=== PATIENT | female | born 1945 | race Caucasian/White ===

== ENCOUNTER 2023-11-20 08:53 | Outpatient (RCR) | payer MEDICARE, SELFPAY | END 2023-11-20 23:59 | disposition home or self-care (01) | LOC: RPT 08:53 | PROVIDERS: ATTENDING PHYSICIAN Family Medicine | DX: Z47.89 Encounter for other orthopedic aftercare (principal); Z87.81 Personal history of (healed) traumatic fracture; Z86.711 Personal history of pulmonary embolism; R53.1 Weakness | CPT/HCPCS: 97110; 97112 ==

== ENCOUNTER 2023-12-25 09:04 | Outpatient (RCR) | payer MEDICARE, SELFPAY | END 2023-12-25 23:59 | disposition home or self-care (01) | LOC: RPT 09:04 | PROVIDERS: ATTENDING PHYSICIAN Family Medicine | DX: Z47.89 Encounter for other orthopedic aftercare (principal); R53.1 Weakness; Z73.6 Limitation of activities due to disability; R26.2 Difficulty in walking, not elsewhere classified; M25.552 Pain in left hip; R26.89 Other abnormalities of gait and mobility; Z86.711 Personal history of pulmonary embolism; Z87.81 Personal history of (healed) traumatic fracture | CPT/HCPCS: 97110; 97112 ==

== ENCOUNTER 2024-01-27 08:56 | Outpatient (RCR) | payer MEDICARE, SELFPAY | END 2024-01-27 23:59 | disposition home or self-care (01) | LOC: RPT 08:56 | PROVIDERS: ATTENDING PHYSICIAN Family Medicine | DX: R53.1 Weakness (principal); Z73.6 Limitation of activities due to disability; M62.81 Muscle weakness (generalized); R26.2 Difficulty in walking, not elsewhere classified; M25.552 Pain in left hip; R26.89 Other abnormalities of gait and mobility; Z86.711 Personal history of pulmonary embolism; Z87.81 Personal history of (healed) traumatic fracture | CPT/HCPCS: 97110; 97112 ==

== ENCOUNTER → 2024-03-24 07:19 | Outpatient (REF) | payer MEDICARE, SELFPAY ==
[2024-03-24 08:18] LABS: % Basophils 0.8 % (0-2); % Eosinophils 8.3 % (0-6); % Immature Granulocytes 0.3 % (0-0.5); % Lymphocytes 41.7 % (20.5-51.1); % Monocytes 7.6 % (1.7-9.3); % Neutrophils 41.3 % (42.2-75.2); Absolute Basophils 0.1 10^3/uL (0-0.2); Absolute Eosinophils 0.6 10^3/uL (0-0.7); Absolute Lymphocytes 3.1 10^3/uL (1.2-3.4); Absolute Monocytes 0.6 10^3/uL (0.1-0.6); Absolute Neutrophils 3.1 10^3/uL (1.4-6.5); Hematocrit 39.7 % (37.0-47.0); Hemoglobin 13.3 g/dL (12.0-16.0); Mean Corp Hgb Conc. 33.5 g/dL (33.0-37.0); Mean Corpuscular Hgb 33.3 pg (27.0-31.0); Mean Corpuscular Volume 99.3 fL (81.0-99.0); Mean Platelet Volume 10.7 fL (7.4-10.4); Nucleated Red Blood Cells % 0 %; Platelet Count 252 10^3/uL (130-400); Red Cell Dist. Width 12.7 % (11.5-14.5); White Blood Cell Count 7.4 10^3/uL (4.8-10.8)
[2024-03-24 08:21] LABS: ALT (SGPT) 17 U/L (0-35); AST (SGOT) 25 U/L (14-36); Albumin 4.2 g/dl (3.5-5.0); Alkaline Phosphatase 46 U/L (38-126); Blood Urea Nitrogen 25 mg/dl (7-17); Carbon Dioxide 27 mmol/L (22-30); Chloride 103 mmol/L (98-107); Glucose 105 mg/dl (70-99); HDL Cholesterol 70 mg/dl; LDL Cholesterol, Calculated 79 mg/dl; Potassium 4.8 mmol/L (3.5-5.1); Sodium 132 mmol/L (135-145); Total Bilirubin 0.4 mg/dl (0.2-1.3); Total Cholesterol 168 mg/dl (50-199); Total Protein 7.4 g/dl (6.3-8.2); Triglyceride 96 mg/dl (10-149); Very Low Density Lipoprotein 19 mg/dl (0-30); eGFR > 60.00
[2024-03-24 08:41] LABS: Microalbumin, Random Urine <0.6 mg/dl (0.6-1.7)
[2024-03-24 09:23] LABS: Glycohemoglobin (HgbA1c) 6.1 % (4.0-5.6)
[2024-03-24 10:48] LABS: Vitamin B12 312 pg/ml (239-931)
== END ==
LOC: REG 07:19
PROVIDERS: ATTENDING PHYSICIAN Family Medicine
DX: E11.65 Type 2 diabetes mellitus with hyperglycemia (principal); E22.2 Syndrome of inappropriate secretion of antidiuretic hormone; D53.9 Nutritional anemia, unspecified; E53.8 Deficiency of other specified B group vitamins
CPT/HCPCS: 36415; 80053; 80061; 82043; 82570; 82607; 83036; 85025

== ENCOUNTER → 2024-10-17 10:47 | Outpatient (REF) | payer MEDICARE, SELFPAY ==
[2024-10-17 12:37] LABS: Sodium 139 mmol/L (135-145)
[2024-10-17 13:39] LABS: Folate 15.2 ng/ml (2.76-20); Vitamin B12 > 1000 pg/ml (239-931)
== END ==
LOC: REG 10:47
PROVIDERS: ATTENDING PHYSICIAN Family Medicine
DX: I87.1 Compression of vein (principal); E53.8 Deficiency of other specified B group vitamins
CPT/HCPCS: 36415; 82607; 82746; 84295

== ENCOUNTER → 2024-11-08 09:08 | Outpatient (REF) | payer MEDICARE, SELFPAY | LOC: HWRAD 09:08 | PROVIDERS: ATTENDING PHYSICIAN Specialist; FAMILY PHYSICIAN Family Medicine | DX: N13.1 Hydronephrosis with ureteral stricture, not elsewhere classified (principal) | CPT/HCPCS: 76775 ==

== ENCOUNTER → 2024-12-26 07:27 | Outpatient (REF) | payer MEDICARE, SELFPAY ==
[2024-12-26 09:38] LABS: Glycohemoglobin (HgbA1c) 6.1 % (4.0-5.6)
[2024-12-26 10:02] LABS: ALT (SGPT) 19 U/L (0-35); AST (SGOT) 25 U/L (14-36); Albumin 4.4 g/dl (3.5-5.0); Alkaline Phosphatase 46 U/L (38-126); Direct Bilirubin 0.1 mg/dl (0.0-0.4); HDL Cholesterol 75 mg/dl; LDL Cholesterol, Calculated 90 mg/dl; Total Bilirubin 0.4 mg/dl (0.2-1.3); Total Cholesterol 180 mg/dl (50-199); Total Protein 7.4 g/dl (6.3-8.2); Triglyceride 79 mg/dl (10-149); Very Low Density Lipoprotein 15 mg/dl (0-30)
[2024-12-26 18:40] LABS: Hepatitis C Antibody Negative (Negative)
== END ==
LOC: REG 07:27
PROVIDERS: ATTENDING PHYSICIAN Family Medicine
DX: Z11.59 Encounter for screening for other viral diseases (principal); E11.65 Type 2 diabetes mellitus with hyperglycemia; M17.11 Unilateral primary osteoarthritis, right knee; M21.41 Flat foot [pes planus] (acquired), right foot; M19.071 Primary osteoarthritis, right ankle and foot
CPT/HCPCS: 36415; 73564; 73630; 80061; 80076; 83036; 86803

== ENCOUNTER → 2024-12-27 07:49 | Outpatient (REF) | payer MEDICARE, SELFPAY | LOC: RAD 07:49 | PROVIDERS: ATTENDING PHYSICIAN Family Medicine | DX: R29.890 Loss of height (principal); N95.1 Menopausal and female climacteric states; N95.9 Unspecified menopausal and perimenopausal disorder | CPT/HCPCS: 77080 ==

== ENCOUNTER 2025-02-28 05:50 | Emergency (ER) | payer MEDICARE, SELFPAY ==
[2025-02-28 05:52] VITALS: BP 154/84
[2025-02-28 06:05] VITALS: BP 154/81
[2025-02-28 06:08] VITALS: BMI 21.0
--- NOTE | 2025-02-28 06:24 | ED.GENMED ---
History of Present Illness
General
Chief Complaint: Cardiac Symptoms
Source: patient
Exam Limitations: none
Time Seen by Provider: 02/28/25 06:08
History of Present Illness
History of Present Illness:
79-year-old female with history of hypertension, nephrectomy and cholecystectomy as well as DVT following knee surgery presents with the onset of fluttering and rapid heart sensation after waking up this morning to go to the bathroom. There is
associated shortness of breath as well. She denies any chest pain. No recent travel or surgery. She is not on anticoagulants currently. She denies orthopnea or leg swelling or calf pain. No fever or cough. No abdominal pain nausea vomiting or
diaphoresis.
Past History
Past History
ED Past Medical History: HTN, NIDDM and Other (Renal cyst, E. coli urinary tract infection, ureteral stent, common bile duct stone)
ED Past Surgical History: Orthopedic (Left hip fracture with pins) and Urological
Social History
Tobacco: Non-smoker
Alcohol: None
Drug: None
Living: with family
Phy Exam
Physical Exam
Physical Exam:
General: Well-appearing female no acute respiratory distress
HEENT: Normocephalic atraumatic
Heart: Regular rate and rhythm no murmurs
Lungs: Clear no wheeze
Abdomen is soft nontender
Extremities: No cyanosis or edema
Course
Orders/Labs/Results
Orders:
Orders
02/28/25 05:55
Electrocardiogram (*1) Urgent
Reason for Study: Bradycardia / Tachycardia
EKG- Treatment ONCE
02/28/25 06:21
Complete Blood Count/With Diff Urgent
Comprehensive Metabolic Panel Urgent
Free T4 Urgent
NT-proBNP Urgent
TSH Reflex To Free T4 Urgent
Comment: ADD ON
Troponin I Urgent
02/28/25 06:23
CR Chest - 2 Views Urgent
Comment:
Reason For Exam: sob
02/28/25 06:24
D-Dimer Urgent
02/28/25 06:34
Add On- LAB Urgent
Tests Added?: tsh reflex to t4
Abnormal Lab Results
02/28/25
06:21
RBC 4.10 L 10^6/uL
(4.20-5.40)
MCH 33.4 H pg
(27.0-31.0)
MPV 10.5 H fL
(7.4-10.4)
Eosinophils % 6.9 H %
(0-6)
BUN 23 H mg/dl
(7-17)
Glucose 122 H mg/dl
(70-99)
TSH (Reflex) 4.83 H uIU/ml
(0.47-4.68)
02/28/25 06:21
02/28/25 06:21
Vital Signs
Initial and Last Documented VS:
Initial Vital Signs
Temp Pulse Resp BP Pulse Ox
97.3 F 86 24 154/84 100
02/28/25 05:52 02/28/25 05:52 02/28/25 05:52 02/28/25 05:52 02/28/25 05:52
Last Documented Vital Signs
Temp Pulse Resp BP Pulse Ox
97.3 F 67 26 145/73 99
02/28/25 05:52 02/28/25 07:00 02/28/25 07:00 02/28/25 07:00 02/28/25 07:00
MDM/Problems Addressed
Differential Diagnosis Includes:
Patient presents with heart racing and shortness of breath. EKG and heart rate on monitor shows normal sinus rhythm. There is no ischemic changes on EKG. She is not hypoxic.
Will start workup with labs including troponin BNP and D-dimer. Chest x-ray pending. Add thyroid study as well
*Critical Care Note
Total Time (30-74mins, 75-104mins- exclusive of procedures): Not Applicable
Update Note
Update Note:
Patient reevaluated. All of her symptoms have resolved. Palpitations and shortness of breath are gone. D-dimer undetectable. Chest x-ray is negative for acute findings. I personally seen and reviewed the x-ray. Troponin and BNP also normal.
Ambulatory pulse ox without any change. Patient came in for palpitations however there is no arrhythmias evident on today's workup. Recommend she follow-up with her family doctor but no indication for admission. Stable for
ED Attending Note
-
Portions of this chart may have been created with voice recognition software.� Occasional wrong word or��sound alike� substitutions may have occurred due to the inherent limitations of voice recognition software.
Discharge Plan
Departure
Patient Disposition: Home (Routine Discharge)
Date of Disposition: 02/28/25
Time of Disposition: 07:50
Patient with high blood pressure during this ER visit?: No
Discharge Problem:
Palpitations
Instructions: Palpitations
Prescriptions:
No Action
aspirin 81 mg Tablet,Delayed Release (Dr/Ec)
81 mg PO DAILY
sodium chloride 1,000 mg tablet,soluble
500 mg PO DAILY
calcium carbonate-vitamin D3 [Calcium 600 + D(3)] 600 mg-10 mcg (400 unit) Tablet
1 tab PO DAILY
Referrals:
Arabella Whitfield DO [Family Provider] -
Activity Restrictions/Additional Instructions:
Stay hydrated. Please return here for worsening symptoms. Follow-up with your doctor for further evaluation
Interventions
Interventions:
*Risk Screen - Suicide Last Done: 02/28/25 05:52
*General Assessment Last Done: 02/28/25 05:59
*Neglect/Abuse Screening Last Done: 02/28/25 05:52
*ED- Fall Risk Assessment Last Done: 02/28/25 05:59
*ED COVID-19 Vaccine History Last Done: 02/28/25 05:59
ED- Pulmonary Assessment Last Done: 02/28/25 05:59
ED- Cardiac Assessment Last Done: 02/28/25 05:59
Discharge Date and Time
Print Language: NORWEGI[place]
[2025-02-28 06:37] LABS: % Basophils 0.5 % (0-2); % Eosinophils 6.9 % (0-6); % Immature Granulocytes 0.2 % (0-0.5); % Lymphocytes 23.6 % (20.5-51.1); % Monocytes 6.6 % (1.7-9.3); % Neutrophils 62.2 % (42.2-75.2); Absolute Eosinophils 0.6 10^3/uL (0-0.7); Absolute Lymphocytes 2.1 10^3/uL (1.2-3.4); Absolute Monocytes 0.6 10^3/uL (0.1-0.6); Absolute Neutrophils 5.5 10^3/uL (1.4-6.5); Hematocrit 39.5 % (37.0-47.0); Hemoglobin 13.7 g/dL (12.0-16.0); Mean Corp Hgb Conc. 34.7 g/dL (33.0-37.0); Mean Corpuscular Hgb 33.4 pg (27.0-31.0); Mean Corpuscular Volume 96.3 fL (81.0-99.0); Mean Platelet Volume 10.5 fL (7.4-10.4); Nucleated Red Blood Cells % 0 %; Platelet Count 238 10^3/uL (130-400); White Blood Cell Count 8.9 10^3/uL (4.8-10.8)
[2025-02-28 06:52] VITALS: BP 131/74
[2025-02-28 06:54] LABS: ALT (SGPT) 18 U/L (0-35); AST (SGOT) 22 U/L (14-36); Albumin 4.4 g/dl (3.5-5.0); Alkaline Phosphatase 50 U/L (38-126); Blood Urea Nitrogen 23 mg/dl (7-17); Calcium 10.1 mg/dl (8.4-10.2); Carbon Dioxide 23 mmol/L (22-30); Chloride 105 mmol/L (98-107); Estimated Creatinine Clearance 48 ml/min; Glucose 122 mg/dl (70-99); Potassium 4.4 mmol/L (3.5-5.1); Sodium 138 mmol/L (135-145); Total Bilirubin 0.7 mg/dl (0.2-1.3); eGFR > 60.00
[2025-02-28 07:00] VITALS: BP 145/73
[2025-02-28 07:01] LABS: NT-proBNP 118 pg/ml; Troponin I < 0.012 ng/ml
[2025-02-28 07:36] LABS: D-Dimer 0.37 ug/mlFEU (0.00-0.50)
[2025-02-28 07:47] LABS: TSH Reflex To Free T4 4.83 uIU/ml (0.47-4.68)
[2025-02-28 08:19] LABS: Free T4 1.33 ng/dl (0.78-2.19)
== END 2025-02-28 08:04 | disposition home or self-care (01) ==
LOC: EMR 05:50
PROVIDERS: Emergency Medicine; Physician Assistant; EMERGENCY PHYSICIAN Emergency Medicine; FAMILY PHYSICIAN Family Medicine
DX: R00.2 Palpitations (principal); E11.9 Type 2 diabetes mellitus without complications; I10 Essential (primary) hypertension; Z90.5 Acquired absence of kidney; Z86.718 Personal history of other venous thrombosis and embolism
CPT/HCPCS: 99285; 71046; 80053; 83880; 84439; 84443; 84484; 85025; 85379; 93005

== ENCOUNTER → 2025-05-22 07:18 | Outpatient (REF) | payer MEDICARE, SELFPAY ==
[2025-05-22 07:59] LABS: % Basophils 1.1 % (0-2); % Eosinophils 13.2 % (0-6); % Immature Granulocytes 0.4 % (0-0.5); % Monocytes 6.5 % (1.7-9.3); % Neutrophils 47.8 % (42.2-75.2); Absolute Basophils 0.1 10^3/uL (0-0.2); Absolute Eosinophils 1.1 10^3/uL (0-0.7); Absolute Lymphocytes 2.5 10^3/uL (1.2-3.4); Absolute Monocytes 0.5 10^3/uL (0.1-0.6); Absolute Neutrophils 3.9 10^3/uL (1.4-6.5); Hematocrit 42.2 % (37.0-47.0); Hemoglobin 13.9 g/dL (12.0-16.0); Mean Corp Hgb Conc. 32.9 g/dL (33.0-37.0); Mean Corpuscular Hgb 32.9 pg (27.0-31.0); Mean Corpuscular Volume 99.8 fL (81.0-99.0); Mean Platelet Volume 10.8 fL (7.4-10.4); Nucleated Red Blood Cells % 0 %; Platelet Count 269 10^3/uL (130-400); Red Blood Cell Count 4.23 10^6/uL (4.20-5.40); Red Cell Dist. Width 12.6 % (11.5-14.5); White Blood Cell Count 8.1 10^3/uL (4.8-10.8)
[2025-05-22 08:43] LABS: ALT (SGPT) 16 U/L (0-35); AST (SGOT) 22 U/L (14-36); Albumin 4.6 g/dl (3.5-5.0); Alkaline Phosphatase 40 U/L (38-126); Blood Urea Nitrogen 19 mg/dl (7-17); Calcium 9.7 mg/dl (8.4-10.2); Carbon Dioxide 24 mmol/L (22-30); Chloride 108 mmol/L (98-107); Glucose 113 mg/dl (70-99); HDL Cholesterol 70 mg/dl; LDL Cholesterol, Calculated 92 mg/dl; Potassium 4.9 mmol/L (3.5-5.1); Sodium 140 mmol/L (135-145); Total Bilirubin 0.6 mg/dl (0.2-1.3); Total Cholesterol 185 mg/dl (50-199); Total Protein 7.6 g/dl (6.3-8.2); Triglyceride 115 mg/dl (10-149); Very Low Density Lipoprotein 23 mg/dl (0-30); eGFR > 60.00
[2025-05-22 08:49] LABS: Glycohemoglobin (HgbA1c) 6.1 % (4.0-5.6)
[2025-05-22 09:04] LABS: TSH 4.35 uIU/ml (0.47-4.68)
[2025-05-22 10:09] LABS: Microalbumin/creatinine Ratio 12.4 mg/g
== END ==
LOC: REG 07:18
PROVIDERS: ATTENDING PHYSICIAN Family Medicine
DX: E11.65 Type 2 diabetes mellitus with hyperglycemia (principal)
CPT/HCPCS: 36415; 80053; 80061; 82043; 82570; 83036; 84443; 85025